=== PATIENT | female | born 1995 | race Hispanic/Latino ===

== ENCOUNTER → 2024-04-27 | Outpatient (CLI) | payer OTHER ==
[2024-04-27 12:11] LABS: +ADD MANUAL DIFF(NO CHRG) NO; BASOPHIL % 0.2 % (0.1-1.2); EOSINOPHIL # 0.1 10^3/uL (0.0-0.2); EOSINOPHIL % 0.8 % (0.0-5.0); HEMATOCRIT(ML) 43.5 % (36.0-46.0); HEMOGLOBIN 14.2 g/dL (12.0-15.0); LYMPHOCYTES # 2.41 10^3/uL1 (1.0-4.8); LYMPHOCYTES % 25.6 % (24.0-44.0); MEAN CORP HGB 27.7 pg (26-34); MEAN CORP HGB CONCENTRATION 32.6 g/dL (33-36.5); MEAN CORP VOLUME 84.8 fL (78-100); MONOCYTES # 0.4 10^3/uL (0.3-0.8); MONOCYTES % 4.7 % (5.0-12.0); NEUTROPHIL # 6.5 10^3/uL (1.8-7.7); NEUTROPHILS % 68.6 % (41.0-85.0); PLATELET COUNT 234 10^3/uL (150-400); RED BLOOD CELL 5.13 10^6/uL (4.00-5.20); WHITE BLOOD CELL 9.4 10^3/uL (4.5-11.0)
[2024-04-27 13:06] LABS: ALBUMIN(ML) 3.5 g/dL (3.4-5.0); ALBUMIN/GLOBULIN RATIO 0.897; ANION GAP 12.6; BUN/CREATININE RATIO 13.04 (10.0-20.0); CALCIUM 8.9 mg/dL (8.4-10.5); CARBON DIOXIDE 27.5 mmol/L (20.0-32); CREATININE SERUM 0.69 mg/dL (0.59-1.40); EST GFR, NON-AA 99.9 (>/=60); LDL/HDL RATIO 1.2; POTASSIUM 4.1 mmol/L (3.6-5.2)
== END | disposition home or self-care (01) ==
LOC: LAB 11:41
PROVIDERS: ATTEND Nurse Practitioner Women's Health
DX: R53.83 Other fatigue (principal); E55.9 Vitamin D deficiency, unspecified; E78.00 Pure hypercholesterolemia, unspecified; R73.09 Other abnormal glucose
CPT/HCPCS: 36415; 80053; 80061; 82306; 83036; 84439; 84443; 85025